=== PATIENT | female | born 1975 ===

== ENCOUNTER 2021-04-12 08:12 | Emergency (ER) | payer OTHER ==
[2021-04-12] MEDS ORDERED: HYDROcodone/ACETAMINOPHEN 5-325 MG TAB PO ONE (09:17)
[2021-04-12] MEDS ORDERED: ONDANSETRON 4 MG ODT TAB PO ONE (09:17)
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
--- NOTE | 2021-04-12 09:38 | XRay Report ---
Right shoulder radiograph, 3 views HISTORY: Pain COMPARISON: None FINDINGS: No acute fracture or malalignment. No focal soft tissue abnormality. Visualized lungs are c lear. IMPRESSION: No acute process Signer Name: Dev Curry MD Signed: 04/12/2021 9:33 AM Workstation Name: [id number]
[2021-04-12 10:37] VITALS: BP 138/85
== END 2021-04-12 10:37 | disposition home or self-care (01) ==
LOC: ED 08:12
DX: S46.811A Strain of other muscles, fascia and tendons at shoulder and upper arm level, right arm, initial encounter (principal); S16.1XXA Strain of muscle, fascia and tendon at neck level, initial encounter; I10 Essential (primary) hypertension; E11.9 Type 2 diabetes mellitus without complications; Z98.890 Other specified postprocedural states; Z88.0 Allergy status to penicillin; Z79.899 Other long term (current) drug therapy; V87.7XXA Person injured in collision between other specified motor vehicles (traffic), initial encounter; Y93.89 Activity, other specified; Y92.488 Other paved roadways as the place of occurrence of the external cause; Y99.8 Other external cause status
CPT/HCPCS: 99283; Q0162